=== PATIENT | female | born 1995 | race Caucasian/White ===

== ENCOUNTER 2024-05-13 13:57 | Emergency (ER) | payer OTHER, SELFPAY ==
[2024-05-13 14:17] VITALS: BP 142/85; PULSE 63; RESP 18; TEMP 36.4; O2SAT 100; BMI 28.0
--- NOTE | 2024-05-13 14:56 | DI.US.S_ITS ---
PROCEDURE: US PERIPH VENOUS LOW EXTREM BI INDICATIONS: ?May thurner TECHNIQUE: Real-time imaging, as well as color and pulse Doppler interrogation, were performed of the deep veins of both legs from the inguinal ligament to the popliteal fossa, with documentation of the visualized calf veins. COMPARISON: None. FINDINGS: Right: The common femoral, femoral, popliteal, and the visualized calf veins are normally compressible, and free of intraluminal thrombus. Color and pulse Doppler demonstrate normal phasic intravascular flow. There is normal augmentation response to distal compression maneuver. Left: The common femoral, femoral, popliteal, and the visualized calf veins are normally compressible, and free of intraluminal thrombus. Color and pulse Doppler demonstrate normal phasic intravascular flow. There is normal augmentation response to distal compression maneuver. IMPRESSION: No findings of deep venous thrombosis in either lower extremity. Dictated by: Geoff Manning M.D. on 05/13/2024 at 15:16 Approved by: Geoff Manning M.D. on 05/13/2024 at 15:16
--- NOTE | 2024-05-13 16:51 | ED.EXTPRO ---
HPI - Extremity Problem <Ant Lopez PA-C - Last Filed: 05/13/24 19:14> General Chief complaint: Extremity Problem,Nontraumatic Stated complaint: poss blood clot after MRI reading, sent by pcp Time Seen by Provider: 05/13/24 14:44 Source: patient Mode of arrival: Ambulatory History of Present Illness HPI Narrative: 29-year-old female presents to the ED to rule out bilateral lower extremity DVTs. Patient had an MRI of the left lower extremity 3 days ago, and the radiology read express some concern about possible May-Thurner syndrome. She was sent to the ED by her physician to get a bilateral lower extremity DVT rule out. Patient denies any swelling, pain, warmth in bilateral legs. No chest pain, shortness of breath. Related Data Allergies Allergy/AdvReac Type Severity Reaction Status Date / Time fluticasone AdvReac Verified 05/13/24 14:16 [From Advair Diskus] salmeterol AdvReac Verified 05/13/24 14:16 [From Advair Diskus] Review of Systems <Ant Lopez PA-C - Last Filed: 05/13/24 19:14> Constitutional Constitutional: Denies chills, Denies fatigue, Denies fever(s), Denies frequent falls, Denies lethargy and Denies weakness Eyes Eyes: Denies change in vision, Denies eye discharge, Denies irritation and Denies loss of vision ENT Ears, Nose, Mouth, and Throat: Denies change in voice, Denies dizziness, Denies neck pain, Denies sore throat and Denies throat swelling Cardiovascular Cardiovascular: Denies chest pain, Denies irregular heart rhythm, Denies lightheadedness, Denies palpitations, Denies dyspnea, Denies dyspnea on exertion and Denies orthopnea Respiratory Respiratory: Denies cough, Denies dyspnea, Denies dyspnea on exertion and Denies wheezing Gastrointestinal Gastrointestinal: Denies abdominal pain, Denies change in bowel habits, Denies diarrhea, Denies nausea and Denies vomiting Musculoskeletal Musculoskeletal: Denies neck pain and Denies numbness Integumentary/Breasts Skin/Breast: Denies pruritus, Denies erythema, Denies rash and Denies wounds Neurologic Neurologic: Denies behavioral changes, Denies confusion, Denies dizziness, Denies frequent falls, Denies loss of vision, Denies numbness and Denies weakness Psychiatric Psychiatric: Denies anxiety, Denies behavioral changes, Denies confusion, Denies depression, Denies homicidal ideation and Denies suicidal ideation Endocrine Endocrine: Denies fatigue, Denies flushing and Denies palpitations Hematologic/Lymphatic Hematologic/Lymphatic: Denies easy bruising Allergic/Immunologic Allergic/Immunologic: Denies urticaria, Denies throat swelling and Denies wheezing Patient History <Ant Lopez PA-C - Last Filed: 05/13/24 19:14> Social History Smoking Status: Unknown if ever smoked Smoking Status: Unknown if ever smoked alcohol intake frequency: holidays/special occasions only Substance Use Type: does not use Exam <Ant Lopez PA-C - Last Filed: 05/13/24 19:14> Narrative Exam Narrative: Const General:?cooperative, healthy appearing and comfortable [facility] Head:?normal to inspection Ears:?hearing grossly normal bilaterally Nose:?external nose normal Face and sinus:?normal facial exam and sinuses nontender Mouth:?oral mucosae normal Throat:?posterior oropharynx normal Eyes General:?appearance normal, both eyes and all related structures Neck Neck:?normal visual inspection and no lymphadenopathy noted Resp Effort & Inspection:?normal respiratory effort Auscultation:?clear to auscultation bilaterally Cardio Rate:?regular rate Rhythm:?regular rhythm Musculoskeletal No swelling, tenderness, erythema, deformities. Neurovascularly intact. Neuro General:?patient alert, patient awake and patient oriented x3 Initial Vital Signs Initial Vital Signs: Vital Signs Temperature 97.5 F L 05/13/24 14:17 Pulse Rate 63 05/13/24 14:17 Respiratory Rate 18 05/13/24 14:17 Blood Pressure 142/85 H 05/13/24 14:17 Pulse Oximetry 100 05/13/24 14:17 Oxygen Delivery Method Room Air 05/13/24 14:17 <Viktoria Damon DO - Last Filed: 05/19/24 08:36> Initial Vital Signs Initial Vital Signs: Vital Signs Temperature 97.5 F L 05/13/24 14:17 Pulse Rate 63 05/13/24 14:17 Respiratory Rate 18 05/13/24 14:17 Blood Pressure 142/85 H 05/13/24 14:17 Pulse Oximetry 100 05/13/24 14:17 Oxygen Delivery Method Room Air 05/13/24 14:17 Course <Ant Lopez PA-C - Last Filed: 05/13/24 19:14> Orders Ordered: ED Orders 05/13/24 14:56 US periph venous low extrem bi Stat Vital Signs Vital signs: Vital Signs - 8 hr 05/13/24 14:17 05/13/24 18:41 Temperature 97.5 F L 98.1 F Pulse Rate 63 80 Respiratory Rate 18 18 Blood Pressure 142/85 H 134/79 Pulse Oximetry 100 99 Oxygen Delivery Method Room Air Room Air <Viktoria Damon DO - Last Filed: 05/19/24 08:36> Orders Ordered: ED Orders 05/13/24 14:56 US periph venous low extrem bi Stat Vital Signs Vital signs: Vital Signs - 8 hr 05/13/24 14:17 05/13/24 18:41 Temperature 97.5 F L 98.1 F Pulse Rate 63 80 Respiratory Rate 18 18 Blood Pressure 142/85 H 134/79 Pulse Oximetry 100 99 Oxygen Delivery Method Room Air Room Air MDM - Extremity (Nontraumatic) <Ant Lopez PA-C - Last Filed: 05/13/24 19:14> MDM Narrative Medical decision making narrative: 29-year-old female presents to the ED to rule out bilateral lower extremity DVTs. Bilateral lower extremity DVT studies ordered. Will reassess. Ultrasound with no findings of deep venous thrombosis in either lower extremity. Discussed findings with patient. Recommend wearing compression stockings as a precautionary measure. Recommend follow-up with PCP as soon as possible. ED return precautions discussed with patient. Patient verbalized understanding. Medical records reviewed: Yes Discharge Plan Departure Patient Disposition: Home Clinical Impression: Normal movement, sensation, and circulation of lower extremity Activity Restrictions/Additional Instructions: You were evaluated in the ED today to evaluate for a DVT/blood clot. We did an ultrasound of both lower extremities, and they were negative for DVTs. You may follow-up with your primary care doctor. Return to the ED if you have any worsening symptoms such as chest pain, shortness of breath, leg pain. Stand Alone Forms: Patient Portal/API/Survey ED Sign-out <Viktoria Damon DO - Last Filed: 05/19/24 08:36> Cosign ED Attending Cosignature Attestation: I was immediately available in the department for consultation.
[2024-05-13 18:41] VITALS: BP 134/79; PULSE 80; RESP 18; TEMP 36.7; O2SAT 99
== END 2024-05-13 18:41 | disposition home or self-care (01) ==
PROVIDERS: Emergency Provider Student in an Organized Health Care Education/Training Program
DX: M54.9 Dorsalgia, unspecified (principal); R94.8 Abnormal results of function studies of other organs and systems
CPT/HCPCS: 93970; 99283

== ENCOUNTER 2024-09-25 09:53 | Emergency (ER) | payer OTHER, SELFPAY ==
[2024-09-25 10:06] VITALS: BP 151/82; PULSE 57; RESP 14; TEMP 36.6; O2SAT 100; BMI 31.6
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
[2024-09-25 11:43] VITALS: BP 135/69; PULSE 56; O2SAT 100
== END 2024-09-25 11:43 | disposition home or self-care (01) ==
PROVIDERS: Emergency Provider Emergency Medicine
DX: S30.1XXA Contusion of abdominal wall, initial encounter (principal)
CPT/HCPCS: 99281